=== PATIENT | female | born 1990 | race American Indian/Alaskan Native ===

== ENCOUNTER 2018-01-08 23:45 | Emergency (ER) | payer OTHER ==
[~2018-01-08] VITALS: Ht 170.2 cm; Wt 84.7 kg
[2018-01-09] MEDS ORDERED: lidocaine 1.5% w/epinephrine 1:200,000 10ml vial MPF IJ ONE ×2 (00:10→00:20)
[2018-01-09] MEDS ORDERED: LIDOcaine 40mg/ml topical solution MM ONE (00:10)
[2018-01-09] MEDS ORDERED: LIDOcaine 4% (40 mg/ml) topical solution 50ml TP ONE (00:15)
[2018-01-09] MEDS ORDERED: LIDOcaine 1.5% w/epinephrine 1:200,000 5ml ampul IJ ONE (00:15)
[2018-01-09 01:47] VITALS: BP 145/88
== END 2018-01-09 01:49 | disposition home or self-care (01) ==
LOC: ER 23:46
DX: S01.511A Laceration without foreign body of lip, initial encounter (principal); S80.212A Abrasion, left knee, initial encounter; S80.211A Abrasion, right knee, initial encounter; S50.311A Abrasion of right elbow, initial encounter; V89.2XXA Person injured in unspecified motor-vehicle accident, traffic, initial encounter; Y93.89 Activity, other specified; Y92.89 Other specified places as the place of occurrence of the external cause; Y99.8 Other external cause status
CPT/HCPCS: 12013; 99283; J2001; J3490

== ENCOUNTER 2018-01-15 10:37 | Emergency (ER) | payer OTHER ==
[~2018-01-15] VITALS: Ht 170.2 cm; Wt 73.0 kg
[2018-01-15 11:06] VITALS: BP 142/90
== END 2018-01-15 13:12 | disposition home or self-care (01) ==
LOC: ER 10:38
DX: S80.02XA Contusion of left knee, initial encounter (principal); V89.2XXA Person injured in unspecified motor-vehicle accident, traffic, initial encounter; Y93.89 Activity, other specified; Y92.89 Other specified places as the place of occurrence of the external cause; Y99.8 Other external cause status
CPT/HCPCS: 73564; 99284